=== PATIENT | male | born 1965 | race Caucasian/White ===

== ENCOUNTER → 2020-03-11 | Day surgery (SDC) | payer BC, OTHER ==
[~2020-03-11] MED LIST: ALEVE220 M1 PO; CYCLOBENZAPRINE10 MG PO; EZETIMIBE10 MG PO; MULTI-VITAMIN1 EAC4 PO; NABUMETONE 500500 M1 PO; PROTONIX 20 MG20 MG PO
== END | disposition home or self-care (01) ==
LOC: LAB 08:36
PROVIDERS: ATTEND Orthopaedic Surgery
DX: Z01.812 Encounter for preprocedural laboratory examination (principal); Z20.828 Contact with and (suspected) exposure to other viral communicable diseases; M87.052 Idiopathic aseptic necrosis of left femur; Z79.899 Other long term (current) drug therapy

== ENCOUNTER 2020-03-15 06:06 | Day surgery (SDC) | payer BC, OTHER ==
[2020-03-11 09:14] LABS: HEMATOCRIT 42.6 % (42.0-52.0); HEMOGLOBIN 14.5 gm/dL (14.0-18.0); MCH 31.6 pg (26.0-34.0); MCHC 34.1 g/dL (28.0-37.0); MCV 92.6 fL (80.0-100.0); RBC 4.61 mil/uL (4.50-6.00); RDW 13.7 % (10.5-14.5); WBC 8.5 thou/uL (4.0-11.0)
[2020-03-11 09:21] LABS: ALBUMIN 3.9 g/dL (3.4-5.0); CALCIUM 9.4 mg/dL (8.5-10.1)
[2020-03-11 09:24] LABS: PROTIME 9.5 Seconds (9.3-11.4)
[2020-03-11 09:34] LABS: URINE BILIRUBIN NEGATIVE (Negative); URINE BLOOD TRACE (Negative); URINE CLARITY CLEAR; URINE COLOR YELLOW; URINE GLUCOSE-RANDOM* NEGATIVE (Negative); URINE KETONES NEGATIVE (Negative); URINE LEUKOCYTES-REFLEX NEGATIVE (Negative); URINE NITRITE-REFLEX NEGATIVE (Negative); URINE PROTEIN (DIPSTICK) NEGATIVE (Negative); URINE SPECIFIC GRAVITY 1.025 (1.005-1.035)
[2020-03-11 09:44] LABS: CASTS None Seen /LPF (None Seen); CRYSTALS None Seen /LPF (None Seen); SQUAMOUS 0-3 Few /LPF (0-3); URINE RBC 0-2 Rare /HPF (0-2); URINE WBC-REFLEX 0-5 Rare /HPF (0-5)
[2020-03-11 09:45] LABS: BACTERIA-REFLEX 1-9 Few /HPF (None Seen)
[~2020-03-15] VITALS: Ht 172.7 cm; Wt 103.4 kg
--- NOTE | ~2020-03-15 | O ---
[facility] [place] [address] OPERATIVE REPORT Name: ARNOLDO PARKER Room #: 440-P [facility] M..#: [id number] Admission: 03/15/20 Attend Phys: Isaias Leo MD Discharge: Date of : 63 Report #: [id number] THIS REPORT FOR: cc: Eleni Carroll K. 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 PROCEDURE: 1. Left total hip arthroplasty. 2. Hardware removal from the left proximal femur. SURGEON: Isaias Leo MD. GORE MAKER: Stefanie Huynh PA-C. INDICATIONS FOR GORE MAKER: Throughout the case, extensive retraction and manipulation of the hip was required including dislocation and reduction. This was afforded to me by my data analysis assistant. ANESTHESIA: LMA. IMPLANTS: Ya and Nephew size 52 R3 acetabular cup with 2 acetabular screws, size 12 high-offset Synergy press fit stem, a size 36, -3 Oxinium head and an Arthrex FiberTape for prophylactic proximal femur fixation. ESTIMATED BLOOD LOSS: 100 mL. COMPLICATIONS: None. SPECIMENS: None. CONDITION UPON LEAVING THE OPERATING ROOM: Stable. INDICATIONS FOR PROCEDURE: The patient is a 54-year-old gentleman who has previously had left hip trauma including dislocation with what appeared to be open reduction and capsular reconstruction. He has gone on to develop avascular [facility] [address] [place] [address] OPERATIVE REPORT Name: ARNOLDO PARKER Room #: 440-P REG [facility] M..#: [id number] Admission: 03/15/20 Attend Phys: Isaias Leo MD Discharge: Date of : 63 Report #: [id number] necrosis of the femoral head leading to stage 3 AVN. After discussion with him and failure of conservative measures, he elected for left total hip arthroplasty. He does have 2 cannulated screws in the proximal femur from his previous surgery and we discussed removal of those at the time of surgery. DESCRIPTION OF PROCEDURE: Risks, benefits, alternatives, complications were discussed in detail with the patient including but not limited to risk of anesthesia, risk of damage to nerves, arteries, blood vessels, risk for infection, bleeding, risk for continued hip pain, leg length discrepancy, instability and need for reoperation. Informed consent was obtained from the patient. Left hip was appropriately marked in the preoperative holding area. IV Ancef was given for preoperative antibiotics. He was brought to the operating room and placed in supine position on operating room table. LMA anesthesia was induced without complication. He was then placed in the right lateral decubitus position with the left hip and lower extremity were prepped and draped in normal sterile fashion. Timeout was performed properly identifying the patient and procedure as well as the instrumentation. All in the operating room were in agreement. Standard posterior approach to the hip was made with 10 blade through the skin. Dissection was taken down to the fascia with Bovie cautery. A Husain elevator was used to clean off the fascia. A fresh 10 blade was used to make a fascial incision. This was taken proximally and distally with curved Gonzalez scissor. Charnley retractor was placed. The 2 cannulated screws in the lateral trochanter was then identified and removed with screwdriver. No piriformis tendon was identified secondary to previous surgery and so the posterior capsule was taken off subperiosteally from the posterior femur. These were tagged for later repair. The hip was dislocated. There was extensive avascular necrosis of the femoral head with unstable cartilage. Femoral neck cut was made 1 cm proximal to lesser trochanter based on preoperative templating and femoral head was removed. Deep acetabular retractors were placed. Labrum was removed sharply. Pulvinar was removed with Bovie cautery. Acetabulum was then sequentially reamed up to a size 52, at which point, there was excellent bleeding cancellous bone. A size 52 R3 acetabular cup was placed and seated. Two acetabular screws were placed for backup fixation and a polyethylene liner for a 36 head was placed. Attention was then turned to the femur. An Arthrex FiberTape cerclage was placed around the proximal femur for prophylactic fixation, and the femur was then reamed and broached up to a size 12. Size 12 broach showed good stability. This was trialed with a high-offset neck and a 36, +0 head. Hip was reduced, taken through range of motion, found to be stable, found to have equal leg lengths. Hip was dislocated and broach was removed. A final size 12 high-offset Synergy press fit stem was placed and seated. This did not seat quite as far as the broach itself and so we trialled a 36, -3 head. Hip was reduced, taken through range of motion, found to be stable, found to have equal leg lengths. Hip was dislocated one last time and a final size 36, -3 Oxinium head was placed. Hip was reduced, taken through range of motion, found to be stable, found to have equal leg lengths. Wound was thoroughly irrigated with normal saline. [address] [address] OPERATIVE REPORT Name: ARNOLDO PARKER Room #: 440-P [facility].#: [id number] Admission: 03/15/20 Attend Phys: Isaias Leo MD Discharge: Date of : 63 Report #: [id number] Periarticular injection consisting of morphine, ropivacaine, epinephrine, Toradol was placed around the hip joint capsule. A gram of vancomycin was placed deep in the joint. The capsule was repaired with 0 FiberWire. Fascia was closed with 0 Vicryl, skin was closed with 2-0 Vicryl, skin staple and a HOSEA dressing was applied. The patient tolerated this procedure well and went to recovery room under care of anesthesia postoperatively. By: [id number] Isaias Leo MD /nt
[2020-03-15 07:22] VITALS: BP 137/75
[2020-03-15 14:42] VITALS: BP 137/75
--- NOTE | 2020-03-15 14:45 | NUR ---
PATIENT ADMITTED FROM OR WITH RIGHT TOTAL HIP REPLACEMENT, HOSEA DRESSING IN PLACE, ICE PACK TO LEFT HIP AREA. SANDY HOSE, AND SCD'S IN PLACE. PATIENT C/O MILD PAIN 2/10, REFUSES PAIN MEDS AT THIS TIME. PATIENT EXPECTING TO GO HOME TO DAY, HARRIET/PT WORKED WITH THE PATIENT AND PATIENT OK TO BE DISCHARGED TO HOME. VSS, RIGHT HAND IV IN PLACE. ADMISSION COMPLETED, REPORT GIVEN TO CHARLINE/RN.
--- NOTE | 2020-03-15 19:36 | NUR ---
Assumed care of pt. at 1120. Pt. was stable and cooperative. Pt. was able to get up and walk with PT 2 hours after coming to floor. Pt. was discharged and education given in the early afternoon.
--- NOTE | 2020-03-16 14:19 | NUR ---
RECEIVED ORDER FOR OT EVALUATION. PATIENT DISCHARGED PRIOR TO OT BEING INITIATED.
== END 2020-03-15 17:39 | disposition home or self-care (01) ==
LOC: OR 06:06 → TBA 06:07 → OR 08:36 → 4S 11:16 → OR 12:19
PROVIDERS: ATTEND Orthopaedic Surgery
DX: M87.852 Other osteonecrosis, left femur (principal); Z47.2 Encounter for removal of internal fixation device; G47.30 Sleep apnea, unspecified; K21.9 Gastro-esophageal reflux disease without esophagitis; E78.5 Hyperlipidemia, unspecified; Z98.890 Other specified postprocedural states; Z79.899 Other long term (current) drug therapy; Z87.891 Personal history of nicotine dependence
CPT/HCPCS: 10102; 50010; 50101; 53368; 57103; 58297; 58298; 62110; 62900; 70005